=== PATIENT | male | born 1995 | race Caucasian/White ===

== ENCOUNTER 2020-09-10 15:07 | Emergency (ER) | payer OTHER, BC ==
[~2020-09-10] VITALS: Ht 172 cm; Wt 79.0 kg
--- NOTE | 2020-09-10 15:18 | ED General ---
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 He was using an intraosseous needle which was laid by the side and the needle actually poked the distal phalanx of the pointer finger on the right hand. Tetanus up-to-date tetanus is up-to-date. Here for blood-borne pathogen testing. Timing/Duration: 1 Hour Associated Systoms: Denies Symptoms Allergies and Home Medications Patient Home Medication List Home Medication List Reviewed: Yes Review of Systems Review of Systems Constitutional: see HPI EENTM: see HPI Respiratory: no symptoms reported Cardiovascular: no symptoms reported Musculoskeletal: no symptoms reported Skin: no symptoms reported Psychiatric/Neurological: No Symptoms Reported Hematologic/Lymphatic: No Symptoms Reported Immunological/Allergic: no symptoms reported Physical Exam Vital Signs Capillary Refill : Height, Weight, BMI Height: '" Weight: lbs. oz. kg; BMI Method: General Appearance: No Apparent Distress, WD/WN Eyes: Bilateral Eye Normal Inspection, Bilateral Eye PERRL, Bilateral Eye EOMI HEENT: PERRL/EOMI, TMs Normal Neck: Full Range of Motion, Normal Inspection Respiratory: No Accessory Muscle Use, No Respiratory Distress Cardiovascular: Regular Rate, Rhythm, Normal Peripheral Pulses Gastrointestinal: Normal Bowel Sounds, Non Tender, Soft Extremity: Normal Capillary Refill, Normal Inspection, Other (Small nonbleeding puncture wound to the distal pad of the pointer finger on the right hand) Neurologic/Psychiatric: Alert, Oriented x3 Skin: Normal Color, Warm/Dry Progress/Results/Core Measures Suspected Sepsis SIRS Temperature: Pulse: Respiratory Rate: Blood Pressure / Mean: Results/Orders My Orders Orders - ALEXIS MALLOY APRN Hepatitis B Surface Antibody (09/10/20 15:13) Hepatitis C Antibody (09/10/20 15:13) Hiv 1&2 Antibody (09/10/20 15:13) Vital Signs/I&O Capillary Refill : Departure Impression Primary Impression: Exposure to blood-borne pathogen Disposition: HOME, SELF-CARE Condition: Stable Departure-Patient Inst. Decision time for Depature: 15:18 Referrals: NO,LOCAL PHYSICIAN (PCP/Family) Primary Care Physician Patient Instructions: Blood or Body Fluid Exposure ALEXIS MALLOY APRN Sep 10, 2020 15:18
[2020-09-10 15:20] VITALS: BP 141/80
[2020-09-11 21:48] LABS: HEPATITIS C ANTIBODY C Non-Reactive (Non-Reactive)
== END 2020-09-10 15:20 | disposition home or self-care (01) ==
LOC: ER 15:12
DX: S61.230A Puncture wound without foreign body of right index finger without damage to nail, initial encounter (principal); W46.1XXA Contact with contaminated hypodermic needle, initial encounter
CPT/HCPCS: 86703; 86803; 87340; 99283; G0499; 36415; 86706